=== PATIENT | male | born 1965 | race Caucasian/White ===

== ENCOUNTER → 2021-03-02 | Day surgery (SDC) | payer OTHER ==
[~2021-03-02] VITALS: Ht 188 cm; Wt 177.3 kg
[~2021-03-02] MED LIST: CELEBREX **OUT100 MG PO; CRANBERRY EXTRACT PO; DAILY VALUE1 EACH PO; ISOSORBIDE DINI20 M1 PO; LIPITOR40 MG PO; LOVAZA1 GM PO; PRINIVIL20 MG PO; VITAMIN B 12 PO; XARELTO10 MG PO
[2021-03-02 08:26] LABS: HCT 41.9 % (42.0-52.0); HGB 13.7 g/dl (13.2-18.0); MCH 34.3 pg (25.0-31.0); MCHC 32.7 g/dL (32.0-36.0); MPV 10.8 fL (6.0-9.5); RBC 3.99 M/uL (4.70-6.00); RDW 12.6 % (11.5-14.0); WBC 6.6 K/uL (4.0-10.5)
[2021-03-02 08:48] LABS: ALBUMIN 3.7 g/dL (3.4-5.0); BILIRUBIN - TOTAL 1.2 mg/dL (0.2-1.0); CREATININE 0.82 mg/dL (0.67-1.17); POTASSIUM 3.9 mmol/L (3.5-5.1); TOTAL PROTEIN 7.7 g/dL (6.4-8.2)
== END | disposition home or self-care (01) ==
LOC: FAS 06:56
PROVIDERS: Surgery
DX: Z12.11 Encounter for screening for malignant neoplasm of colon (principal); K57.30 Diverticulosis of large intestine without perforation or abscess without bleeding; E66.01 Morbid (severe) obesity due to excess calories; I10 Essential (primary) hypertension; Z88.1 Allergy status to other antibiotic agents; Z86.718 Personal history of other venous thrombosis and embolism; Z79.01 Long term (current) use of anticoagulants; Z68.43 Body mass index [BMI] 50.0-59.9, adult
CPT/HCPCS: 36415; 80053; J2704; J7120